=== PATIENT | female | born 1940 | race Caucasian/White ===

== ENCOUNTER 2022-08-01 10:26 | Observation (INO) | payer MEDICARE ==
[~2022-08-01] VITALS: Ht 160 cm; Wt 88.5 kg
[2022-08-01] VITALS (12 sets, daily range): BP systolic 126–173; BP diastolic 42–82
[2022-08-01] MEDS ORDERED: ASPI-1265 PO (11:14)
[2022-08-01] MEDS ORDERED: vitamin PO (11:14)
[2022-08-01] MEDS ORDERED: FEBU40TA PO (11:14)
[2022-08-01] MEDS ORDERED: AMLO2.5T2 PO (11:14)
[2022-08-01] MEDS ORDERED: ATEN-169 PO (11:14)
[2022-08-01] MEDS ORDERED: VITA-268 PO (11:14)
[2022-08-01] MEDS ORDERED: TRAM50TA2 PO (11:14)
[2022-08-01] MEDS ORDERED: TRIA1CAP88 PO (11:14)
[2022-08-01] MEDS ORDERED: diphenhydrAMINE 25mg capsule PO PRN (11:20)
[2022-08-01] MEDS: normal saline 1,000 ML IV SCH (11:31)
[2022-08-01 11:34] LABS: BASOPHILS # (AUTO) 0.1 X10'3 (0-0.2); BASOPHILS % (AUTO) 0.9 % (0-1); EOSINOPHILS # (AUTO) 0.1 X10'3 (0-0.9); EOSINOPHILS % (AUTO) 1.8 % (0-6); HEMATOCRIT 38.9 % (35.0-45.0); LYMPHOCYTES # (AUTO) 2.3 X10'3 (1.1-4.8); LYMPHOCYTES % (AUTO) 33.4 % (21-51); MEAN CORPUSCULAR HEMOGLOBIN 29.2 PG (27.0-31.0); MEAN CORPUSCULAR HGB CONC 33.5 g/dL (33.0-36.5); MEAN PLATELET VOLUME 8.9 FL (7.4-10.4); MONOCYTES # (AUTO) 0.5 X10'3 (0-0.9); MONOCYTES % (AUTO) 7.2 % (2-12); NEUTROPHILS # (AUTO) 3.8 X10'3 (1.8-7.7); NEUTROPHILS % (AUTO) 56.7 % (42-75); PLATELET COUNT 227 X10'3 (140-440); RED BLOOD COUNT 4.47 X10'6 (4.20-5.60); RED CELL DISTRIBUTION WIDTH 13.5 % (11.5-14.5); WHITE BLOOD COUNT 6.7 X10'3 (4.5-11.0)
[2022-08-01 11:35] LABS: ALBUMIN 4.3 G/DL (3.4-5.0); ANION GAP 10 (8-16); BLOOD UREA NITROGEN 48 MG/DL (7-18); BUN/CREATININE RATIO 19.8 (6.6-38.0); CALCIUM 9.6 MG/DL (8.5-10.1); CHLORIDE 103 MMOL/L (99-107); CREATININE 2.43 MG/DL (0.40-0.90); GLUCOSE 103 MG/DL (70-104); MAGNESIUM 1.6 MG/DL (1.5-2.4); POTASSIUM 4.2 MMOL/L (3.5-5.1); SODIUM 139 MMOL/L (135-145); eGFR 19 ML/MIN
[2022-08-01] MEDS ORDERED: sodium bicarbonate (8.4%) inj. 150 ML in dextrose 5%-water 1,000 ML IV ONE (12:45)
[2022-08-01] MEDS ORDERED: verapamil 2.5 mg/ml inj IV ONE (14:01)
[2022-08-01] MEDS ORDERED: midazolam 1 mg/ML 2ml injection ONE (14:01)
[2022-08-01] MEDS ORDERED: fentaNYL/PF 50MCG/1 ML 2ML syringe ONE (14:01)
[2022-08-01] MEDS ORDERED: nitroGLYCERIN-Tridil 50MG/D5W 250 ML IV ONE (14:01)
[2022-08-01] MEDS ORDERED: heparin 1,000unit/ml 10ml vial 10 ML ONE (14:02)
[2022-08-01] MEDS ORDERED: LIDOcaine 1% (10mg/ml) 2ml vial ONE (14:02)
[2022-08-01] MEDS ORDERED: iohexol 350MG/ML 100ml bottle IV ONE ×2 (14:02→15:32)
[2022-08-01] MEDS ORDERED: LIDOcaine 1% 30ml preserv. free vial ONE (14:45)
[2022-08-01] MEDS ORDERED: nitroGLYCERIN 0.4mg SUBLingual tab SL ONE (15:29)
[2022-08-01] MEDS ORDERED: mag hydrox/Alum hydrox/simeth 30ml oral suspension PO ONE (16:05)
[2022-08-01] MEDS ORDERED: HYDROcodone/acetaminophen 5mg/325mg tablet PO PRN (16:20)
[2022-08-01] MEDS ORDERED: HYDROcodone/acetaminophen 10/325mg tab PO PRN (16:20)
[2022-08-01] MEDS ORDERED: proCHLORperazine 10 MG/2 ml inj IV PRN (16:20)
[2022-08-01] MEDS ORDERED: ondansetron/PF 4mg/2ml inj IV PRN (16:20)
[2022-08-01] MEDS ORDERED: traMADol 50MG tablet PO PRN ×2 (16:50→17:14)
--- NOTE | 2022-08-01 18:35 | NUR ---
VSS, pt's R tony sotomayor CDI, patient report given, questions answered & plan of care reviewed with STEVEN Chase, I will be bringing pt to #[id number].
--- NOTE | 2022-08-01 18:55 | NUR ---
pt is in rm #[id number], VSS, Elva jimenez dsg CDI, pt's STEVEN Chase at pt's bedside, all pt belongings transferred with pt to room 3015B, pt is in no distress at this time, pt is up and ambulated to restroom.
[2022-08-01] MEDS: normal saline 1000ml 1,000 ML IV SCH (22:00)
[2022-08-02] MEDS: normal saline 1000ml 1,000 ML IV SCH ×2 (01:51→08:00)
[2022-08-02 02:00] VITALS: BP 140/74
[2022-08-02 06:30] VITALS: BP 129/59
[2022-08-02] MEDS: normal saline 1,000 ML IV SCH ×2 (06:35→07:20)
[2022-08-02 07:24] LABS: ALBUMIN 3.3 G/DL (3.4-5.0); ANION GAP 4 (8-16); BLOOD UREA NITROGEN 41 MG/DL (7-18); CALCIUM 8.9 MG/DL (8.5-10.1); CHLORIDE 105 MMOL/L (99-107); CREATININE 1.86 MG/DL (0.40-0.90); GLUCOSE 98 MG/DL (70-104); POTASSIUM 3.7 MMOL/L (3.5-5.1); SODIUM 141 MMOL/L (135-145); TOTAL CARBON DIOXIDE 31.6 MMOL/L (24-32); eGFR 26 ML/MIN
[2022-08-02] MEDS ORDERED: VITAMIN PO SCH (08:00)
[2022-08-02] MEDS ORDERED: vitamin B comp w/Vit. C tab 1 TAB TABLET PO SCH (08:00)
[2022-08-02] MEDS ORDERED: TRIAMTERENE PO SCH (08:00)
[2022-08-02] MEDS ORDERED: aspirin 81mg tab.chew PO SCH (08:00)
[2022-08-02] MEDS ORDERED: febuxostat 40mg tablet PO SCH (08:00)
[2022-08-02] MEDS ORDERED: HYDROCHLOROTHIAZID PO SCH (08:00)
[2022-08-02] MEDS ORDERED: atenolol 25mg tablet PO SCH (08:00)
[2022-08-02] MEDS ORDERED: amLODIPine 2.5mg tablet PO SCH (08:00)
[2022-08-02 08:30] VITALS: BP_SYST 129
--- NOTE | 2022-08-12 10:44 | NUR ---
Case Management DC follow up:Spoke with Patient via telephone.S/P : Patient Reports: Denies: Acute/continuous CP, emergent SOB, resp distress, orthopnea; however, verbalizes mild dyspnea with exertion.Verbalizes she has a cough and sinus infection at this time, denying fever and/or chills.Denies: N/V, weakness,vertigo, syncope episodes, orthostatic hypotension, AGUILAR, blurry vision, s/s of stroke/BE-FAST, dysphagia, dysuria, hematuria, retention, abdominal pain/distention, hematochezia, melena, unexplained bruising, bleeding, fever, chills. Verbalizes understanding of new Rx:, why prescribed;continues/resumes current Rx as ordered.Verbalized her right wrist has bruising; however, denies s/s of infection, numbness and/or tingling of fingers.Verbalizes her right groin puncture site is clear, denying s/s of drainage, redness, and/or bad odor.Verbalizes understanding of s/s that warrant a 9-11/ER visit for further evaluation.Verbalizes plan to schedule follow up with PCP at [facility] in [place].Verbalizes follow up appointment with 08/12/22. Verbalizes the nursing staff were good. Needs Met,questions/concerns addressed at DC.No further questions/concerns regarding recent hospital stay and or DC status at this time.
== END 2022-08-02 10:18 | disposition home or self-care (01) ==
LOC: SSTAY O 10:26 → PCU 3S 15:45 → INTOOBSV 15:45
PROVIDERS: ADMIT Internal Medicine Cardiovascular Disease; ATTEND Internal Medicine Cardiovascular Disease
DX: I47.1 Supraventricular tachycardia (principal); I10 Essential (primary) hypertension; R94.31 Abnormal electrocardiogram [ECG] [EKG]; K57.80 Diverticulitis of intestine, part unspecified, with perforation and abscess without bleeding; C34.91 Malignant neoplasm of unspecified part of right bronchus or lung; C50.912 Malignant neoplasm of unspecified site of left female breast; N19 Unspecified kidney failure; Z90.710 Acquired absence of both cervix and uterus; Z79.899 Other long term (current) drug therapy
CPT/HCPCS: 36415; 80048; 83735; 84484; 85025; 85610; 92978; 93005; 93458; 93571; 96365; 96366; 96375; C1751; C1753; C1760; C1769; C1894; G0378; J1644; J2250; J2405; J3010; J3490; J7030; J7070; Q9967; 99152; 99153; A4620; A6258